=== PATIENT | female | born 1980 | race Caucasian/White ===

== ENCOUNTER → 2016-08-12 | Outpatient (CLI) | payer MEDICARE ==
[~2016-08-12] MED LIST: AUGMENTIN 875 M1 TAB PO; AUGMENTIN 875875 MG PO; CATAFLAM50 MG PO; CIPRODEX 0.3%-7.5 ML OT; HYDROCODONE BIT1 T11 PO; KEFLEX500 M1 PO; KETOROLAC10 MG PO; MOTRIN800 MG PO; Motrin,Rufen800 MG PO; NAPROSYN500 MG PO; PEN-VEE K500 MG PO; PENICILLIN; PHENERGAN W/DM120 ML PO; PREDNICOT10 MG PO; PROAIR HFA0.09 MG/AC INH; ZITHROMAX Z PA250 MG PO
== END | disposition home or self-care (01) ==
LOC: RAD 20:28
DX: J20.9 Acute bronchitis, unspecified (principal); R06.2 Wheezing; R09.89 Other specified symptoms and signs involving the circulatory and respiratory systems; R05 Cough

== ENCOUNTER → 2016-08-29 | Outpatient (CLI) | payer MEDICARE | END | disposition home or self-care (01) | LOC: RAD 15:38 | DX: M25.531 Pain in right wrist (principal) ==

== ENCOUNTER → 2016-11-26 | Outpatient (CLI) | payer MEDICARE | END | disposition home or self-care (01) | LOC: MRI 09:46 | DX: M67.431 Ganglion, right wrist (principal); M19.031 Primary osteoarthritis, right wrist; M65.841 Other synovitis and tenosynovitis, right hand ==

== ENCOUNTER 2017-02-23 21:14 | Emergency (ER) | payer MEDICARE ==
[~2017-02-23] VITALS: Ht 160 cm; Wt 97.5 kg
[2017-02-23 21:21] VITALS: BP 152/90
[2017-02-23 21:50] LABS: BASO # 0.1 10*3/uL (0.0-0.1); BASO % 0.7 % (0.0-1.0); EOS # 0.2 10*3/uL (0.0-0.4); EOS % 2.1 % (1.0-4.0); HEMATOCRIT 33.9 % (37.0-47.0); HEMOGLOBIN 11.5 g/dl (12.0-16.0); LYMPH # 2.7 10*3/uL (1.3-4.4); MEAN CELL VOLUME 88.3 fl (81.0-99.0); MEAN CORPUSCULAR HGB 29.9 pg (27.0-31.0); MEAN CORPUSCULAR HGB CONC 33.9 g/dl (33.0-37.0); MEAN PLATELET VOLUME 10.2 fl (9.6-12.3); MONO # 0.6 10*3/uL (0.1-1.0); MONO % 7.1 % (3.0-9.0); NEUT # 4.8 10*3/uL (2.3-7.9); PLATELET COUNT AUTOMATED 242 10*3/uL (130-400); RED BLOOD COUNT 3.84 10*6/uL (4.10-5.10); RED CELL DISTRI WIDTH 11.8 % (0-14.5); WHITE BLOOD COUNT 8.3 10*3/uL (4.8-10.8)
[2017-02-23 22:07] LABS: ALBUMIN 3.6 gm/dl (3.1-4.5); BILIRUBIN, TOTAL 0.5 mg/dl (0.2-1.0); POTASSIUM 3.8 mmol/L (3.5-5.1); TOTAL PROTEIN 7.1 gm/dL (6.4-8.2)
[2017-02-23 22:07] LABS: BILIRUBIN NEGATIVE (NEGATIVE); BLOOD 1+ (NEGATIVE); CLARITY CLOUDY (CLEAR); COLOR YELLOW (YELLOW); GLUCOSE NEGATIVE (NEGATIVE); KETONE NEGATIVE (NEGATIVE); LEUKO ESTERASE 2+ (NEGATIVE); NITRITE NEGATIVE (NEGATIVE); PROTEIN TRACE (NEGATIVE); SPECIFIC GRAVITY 1.025 (1.005-1.030)
[2017-02-23 22:13] LABS: WBC TNTC wbc/hpf (0-5)
[2017-02-23 22:14] LABS: BACTERIA 4+; MUCOUS TRACE; URINE REFLEX COMMENT YES (NO)
[2017-02-23] MEDS ORDERED: MACROBID100 M1 PO (22:16)
[2017-02-23] MEDS ORDERED: Motrin,Rufen800 MG PO (22:50)
== END 2017-02-23 22:56 | disposition home or self-care (01) ==
LOC: ED 21:14
PROVIDERS: Physician Assistant
DX: N30.01 Acute cystitis with hematuria (principal); F17.200 Nicotine dependence, unspecified, uncomplicated

== ENCOUNTER 2017-12-12 16:08 | Inpatient (IN) | payer MEDICARE ==
[~2017-12-12] VITALS: Ht 160 cm; Wt 113.0 kg
[~2017-12-12 16:08] MED LIST changes: +MACROBID100 M1 PO
[2017-12-12 16:12] VITALS: BP 154/93
[2017-12-12 16:34] LABS: BASO # 0.1 10*3/uL (0.0-0.1); BASO % 0.9 % (0.0-1.0); EOS # 0.2 10*3/uL (0.0-0.4); EOS % 2.5 % (1.0-4.0); HEMATOCRIT 36.9 % (37.0-47.0); HEMOGLOBIN 12.4 g/dl (12.0-16.0); LYMPH # 1.9 10*3/uL (1.3-4.4); LYMPH % 27.5 % (27.0-41.0); MEAN CELL VOLUME 88.5 fl (81.0-99.0); MEAN CORPUSCULAR HGB 29.7 pg (27.0-31.0); MEAN CORPUSCULAR HGB CONC 33.6 g/dl (33.0-37.0); MEAN PLATELET VOLUME 10.1 fl (9.6-12.3); MONO # 0.4 10*3/uL (0.1-1.0); MONO % 5.8 % (3.0-9.0); NEUT # 4.3 10*3/uL (2.3-7.9); PLATELET COUNT AUTOMATED 268 10*3/uL (130-400); RED BLOOD COUNT 4.17 10*6/uL (4.10-5.10); WHITE BLOOD COUNT 6.9 10*3/uL (4.8-10.8)
[2017-12-12 16:39] VITALS: BP 165/101
[2017-12-12 16:42] LABS: ACT PARTIAL THROMBO TIME 21.3 SECONDS (20.8-31.5); INTERNATIONAL NORM RATIO 0.9 (2.0-3.5)
[2017-12-12 16:50] LABS: ALBUMIN 3.7 gm/dl (3.1-4.5); ALKALINE PHOSPHATASE 134 U/L (45-117); BUN 8 mg/dl (7-24); CHLORIDE 106 mmol/L (98-107); CREATININE 1.03 mg/dL (0.55-1.02); POTASSIUM 3.7 mmol/L (3.5-5.1); SGOT/AST 18 IU/L (3-35); SGPT/ALT 20 U/L (12-78); SODIUM 141 mmol/L (136-145); TOTAL PROTEIN 7.5 gm/dL (6.4-8.2)
[2017-12-12 16:52] LABS: TROPONIN I < 0.015 ng/ml (<0.045)
[2017-12-12 16:56] VITALS: BP 152/87
[2017-12-12] MEDS ORDERED: LEXAPRO20 MG PO (16:58)
[2017-12-12 17:27] LABS: BILIRUBIN NEGATIVE (NEGATIVE); BLOOD TRACE-INTACT (NEGATIVE); CLARITY CLEAR (CLEAR); COLOR YELLOW (YELLOW); GLUCOSE NEGATIVE (NEGATIVE); KETONE NEGATIVE (NEGATIVE); LEUKO ESTERASE 3+ (NEGATIVE); NITRITE NEGATIVE (NEGATIVE); SPECIFIC GRAVITY <= 1.005 (1.005-1.030)
[2017-12-12 17:30] VITALS: BP 142/75
[2017-12-12 17:35] LABS: URINE AMPHETAMINES < 1000 (1000ng/ml); URINE BARBITURATES < 200 (200ng/ml); URINE BENZODIAZEPINES < 200 (200ng/ml); URINE CANNABINOIDS (THC) < 50 (50ng/ml); URINE COCAINE < 300 (300ng/ml); URINE METHADONE < 300 (300ng/ml); URINE OPIATES < 300 (300ng/ml); URINE PHENCYCLIDINE < 25 (25ng/ml)
[2017-12-12 17:37] LABS: EPITHELIAL CELLS 50-55
[2017-12-12 17:38] LABS: BACTERIA TRACE; WBC TNTC wbc/hpf (0-5)
[2017-12-12 17:45] VITALS: BP 142/75
[2017-12-12] MEDS ORDERED: LEXAPRO10 MG PO (18:04)
[2017-12-12 20:00] VITALS: BP 117/58
[2017-12-13] VITALS: BP 101/66
[2017-12-13 07:08] LABS: BASO # 0.1 10*3/uL (0.0-0.1); EOS # 0.2 10*3/uL (0.0-0.4); EOS % 2.4 % (1.0-4.0); HEMATOCRIT 36.2 % (37.0-47.0); HEMOGLOBIN 11.5 g/dl (12.0-16.0); LYMPH # 2.6 10*3/uL (1.3-4.4); LYMPH % 41.5 % (27.0-41.0); MEAN CELL VOLUME 92.8 fl (81.0-99.0); MEAN CORPUSCULAR HGB 29.5 pg (27.0-31.0); MEAN CORPUSCULAR HGB CONC 31.8 g/dl (33.0-37.0); MEAN PLATELET VOLUME 11.1 fl (9.6-12.3); MONO # 0.5 10*3/uL (0.1-1.0); MONO % 7.6 % (3.0-9.0); NEUT # 2.9 10*3/uL (2.3-7.9); NEUT % 47.3 % (47.0-73.0); PLATELET COUNT AUTOMATED 230 10*3/uL (130-400); RED CELL DISTRI WIDTH 12.1 % (0-14.5); WHITE BLOOD COUNT 6.2 10*3/uL (4.8-10.8)
[2017-12-13 07:10] LABS: ACT PARTIAL THROMBO TIME 22.3 SECONDS (20.8-31.5); ALBUMIN 3.2 gm/dl (3.1-4.5); ALKALINE PHOSPHATASE 115 U/L (45-117); BUN 10 mg/dl (7-24); CHLORIDE 106 mmol/L (98-107); CHOLESTEROL 117 mg/dL (<200); CREATININE 1.03 mg/dL (0.55-1.02); FREE T4 1.07 ng/dl (0.76-1.46); HDL CHOLESTEROL 36 mg/dl (40-60); INTERNATIONAL NORM RATIO 0.9 (2.0-3.5); LDL CHOLESTEROL 61 mg/dL (9-159); PHOSPHOROUS 4.2 mg/dL (2.5-4.9); POTASSIUM 3.7 mmol/L (3.5-5.1); SGOT/AST 12 IU/L (3-35); SGPT/ALT 16 U/L (12-78); SODIUM 142 mmol/L (136-145); TRIGLYCERIDES 100 mg/dl (<150); VLDL CHOLESTEROL 20 mg/dL (6-40)
[2017-12-13 07:15] LABS: TOTAL PROTEIN 6.3 gm/dL (6.4-8.2)
[2017-12-13 08:00] VITALS: BP 99/63
[2017-12-13 08:22] LABS: VITAMIN D, 25-HYDROXY 22.4 ng/mL (30-100)
[2017-12-13 12:00] VITALS: BP 102/64
[2017-12-13] MEDS ORDERED: CYCLOBENZAPRINE10 MG PO (14:14)
[2017-12-13] MEDS ORDERED: PREDNISONE50 MG PO (14:14)
== END 2017-12-13 14:38 | disposition home or self-care (01) | DRG 206 ==
LOC: ED 16:08 → EDHOLD 16:56 → 5E 17:34
PROVIDERS: Emergency Medicine; Family Medicine
DX: M94.0 Chondrocostal junction syndrome [Tietze] (principal); E66.01 Morbid (severe) obesity due to excess calories; F33.9 Major depressive disorder, recurrent, unspecified; N39.0 Urinary tract infection, site not specified; Z68.41 Body mass index [BMI] 40.0-44.9, adult; F17.210 Nicotine dependence, cigarettes, uncomplicated; E78.5 Hyperlipidemia, unspecified; E83.41 Hypermagnesemia; R73.9 Hyperglycemia, unspecified; F41.1 Generalized anxiety disorder; Z98.891 History of uterine scar from previous surgery; Z90.710 Acquired absence of both cervix and uterus; Z79.899 Other long term (current) drug therapy; Z90.49 Acquired absence of other specified parts of digestive tract; Z98.51 Tubal ligation status; Z82.49 Family history of ischemic heart disease and other diseases of the circulatory system; Z83.3 Family history of diabetes mellitus; Z83.79 Family history of other diseases of the digestive system; Z71.6 Tobacco abuse counseling

== ENCOUNTER 2018-02-13 22:00 | Emergency (ER) | payer MEDICARE ==
[~2018-02-13] VITALS: Ht 160 cm; Wt 90.7 kg
[~2018-02-13 22:00] MED LIST changes: +CYCLOBENZAPRINE10 MG PO; +LEXAPRO10 MG PO; +LEXAPRO20 MG PO; +PREDNISONE50 MG PO
[2018-02-13 22:03] VITALS: BP 124/79
== END 2018-02-14 ==
LOC: ED 22:00
DX: R07.81 Pleurodynia (principal); M25.511 Pain in right shoulder; Z53.21 Procedure and treatment not carried out due to patient leaving prior to being seen by health care provider

== ENCOUNTER 2018-05-17 20:59 | Emergency (ER) | payer MEDICARE ==
[~2018-05-17] VITALS: Ht 160 cm; Wt 87.1 kg
[2018-05-17 21:00] VITALS: BP 144/84
[2018-05-17] MEDS ORDERED: DELTASONE20 M1 PO (23:29)
[2018-05-17] MEDS ORDERED: DIFLUCAN150 MG PO (23:29)
[2018-05-17] MEDS ORDERED: ROBITUSSIN DM 105 ML PO (23:29)
== END 2018-05-18 01:10 | disposition home or self-care (01) ==
LOC: ED 20:59
DX: J40 Bronchitis, not specified as acute or chronic (principal); R19.7 Diarrhea, unspecified; R11.0 Nausea; R10.30 Lower abdominal pain, unspecified; F17.200 Nicotine dependence, unspecified, uncomplicated

== ENCOUNTER 2018-09-05 20:31 | Emergency (ER) | payer OTHER ==
[~2018-09-05] VITALS: Ht 160 cm; Wt 90.7 kg
[~2018-09-05 20:31] MED LIST changes: +DELTASONE20 M1 PO; +DIFLUCAN150 MG PO; +ROBITUSSIN DM 105 ML PO
[2018-09-05 20:34] VITALS: BP 156/95
[2018-09-05] MEDS ORDERED: AUGMENTIN 875875 MG PO (22:23)
[2018-12-28] MEDS ORDERED: CEFUROXIME AXE500 MG PO (17:58)
== END 2018-09-05 22:28 | disposition home or self-care (01) ==
LOC: ED 20:31
DX: H66.91 Otitis media, unspecified, right ear (principal); J06.9 Acute upper respiratory infection, unspecified; H60.91 Unspecified otitis externa, right ear; E66.01 Morbid (severe) obesity due to excess calories; F17.210 Nicotine dependence, cigarettes, uncomplicated

== ENCOUNTER → 2018-12-17 | Outpatient (CLI) | payer OTHER ==
[~2018-12-17] MED LIST changes: +CEFUROXIME AXE500 MG PO; +CYCLOBENZAPRINE5 M3 PO
== END ==
LOC: US 13:30
DX: N93.9 Abnormal uterine and vaginal bleeding, unspecified (principal); R10.2 Pelvic and perineal pain

== ENCOUNTER 2019-02-15 17:28 | Emergency (ER) | payer OTHER ==
[~2019-02-15] VITALS: Ht 160 cm; Wt 68.0 kg
--- NOTE | ~2019-02-15 | EKG ---
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
--- NOTE | ~2019-02-15 | EKG ---
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
[~2019-02-15 17:28] MED LIST changes: -CYCLOBENZAPRINE5 M3 PO
[2019-02-15 17:49] LABS: BASO # 0.1 10*3/uL (0.0-0.1); BASO % 1.2 % (0.0-1.0); EOS # 0.4 10*3/uL (0.0-0.4); EOS % 4.8 % (1.0-4.0); HEMATOCRIT 38.1 % (37.0-47.0); HEMOGLOBIN 13.1 g/dl (12.0-16.0); LYMPH # 2.2 10*3/uL (1.3-4.4); MEAN CELL VOLUME 92.5 fl (81.0-99.0); MEAN CORPUSCULAR HGB 31.8 pg (27.0-31.0); MEAN CORPUSCULAR HGB CONC 34.4 g/dl (33.0-37.0); MEAN PLATELET VOLUME 10.4 fl (9.6-12.3); MONO # 0.5 10*3/uL (0.1-1.0); MONO % 7.1 % (3.0-9.0); NEUT # 4.2 10*3/uL (2.3-7.9); NEUT % 56.8 % (47.0-73.0); PLATELET COUNT AUTOMATED 239 10*3/uL (130-400); RED BLOOD COUNT 4.12 10*6/uL (4.10-5.10); RED CELL DISTRI WIDTH 11.5 % (0-14.5); WHITE BLOOD COUNT 7.5 10*3/uL (4.8-10.8)
[2019-02-15 18:00] LABS: ACT PARTIAL THROMBO TIME 22.7 SECONDS (20.0-32.1); INTERNATIONAL NORM RATIO 0.9 (2.0-3.5)
[2019-02-15 18:03] LABS: ALBUMIN 3.8 gm/dl (3.1-4.5); ALKALINE PHOSPHATASE 129 U/L (45-117); BUN 12 mg/dl (7-24); CHLORIDE 105 mmol/L (98-107); POTASSIUM 4.2 mmol/L (3.5-5.1); SGOT/AST 11 IU/L (3-35); SGPT/ALT 18 U/L (12-78); SODIUM 140 mmol/L (136-145); TOTAL PROTEIN 7.3 gm/dL (6.4-8.2)
[2019-02-15 18:04] LABS: LIPASE 160 U/L (73-393)
[2019-02-15 18:10] LABS: TROPONIN I < 0.015 ng/ml (<0.045)
[2019-02-15 19:50] VITALS: BP 121/90
== END 2019-02-15 21:09 | disposition home or self-care (01) ==
LOC: ED 17:28
PROVIDERS: Emergency Medicine
DX: R07.89 Other chest pain (principal); R05 Cough; R51 Headache; R50.9 Fever, unspecified; E78.00 Pure hypercholesterolemia, unspecified; E66.01 Morbid (severe) obesity due to excess calories; F17.200 Nicotine dependence, unspecified, uncomplicated; Z88.6 Allergy status to analgesic agent; Z79.2 Long term (current) use of antibiotics; Z79.899 Other long term (current) drug therapy; Z90.710 Acquired absence of both cervix and uterus; Z90.49 Acquired absence of other specified parts of digestive tract

== ENCOUNTER 2019-03-24 00:59 | Emergency (ER) | payer OTHER ==
[~2019-03-24] VITALS: Ht 160 cm; Wt 83.9 kg
[2019-03-24 01:01] VITALS: BP 136/71
[2019-03-24] MEDS ORDERED: CYCLOBENZAPRINE5 M3 PO (02:53)
[2019-03-24] MEDS ORDERED: Motrin,Rufen800 MG PO (02:53)
== END 2019-03-24 03:06 | disposition home or self-care (01) ==
LOC: ED 00:59
DX: S20.212A Contusion of left front wall of thorax, initial encounter (principal); E66.01 Morbid (severe) obesity due to excess calories; F17.200 Nicotine dependence, unspecified, uncomplicated; Z88.6 Allergy status to analgesic agent; Z90.710 Acquired absence of both cervix and uterus; Z90.49 Acquired absence of other specified parts of digestive tract; W18.39XA Other fall on same level, initial encounter; Y93.01 Activity, walking, marching and hiking; Y92.830 Public park as the place of occurrence of the external cause; Y99.8 Other external cause status

== ENCOUNTER 2019-08-03 00:32 | Emergency (ER) | payer OTHER ==
[~2019-08-03] VITALS: Ht 160 cm; Wt 68.0 kg
[~2019-08-03 00:32] MED LIST changes: +CYCLOBENZAPRINE5 M3 PO
[2019-08-03 00:34] VITALS: BP 122/69
[2019-08-03 01:04] LABS: BILIRUBIN NEGATIVE (NEGATIVE); BLOOD 3+ (NEGATIVE); CLARITY TURBID (CLEAR); COLOR YELLOW (YELLOW); GLUCOSE NEGATIVE (NEGATIVE); KETONE NEGATIVE (NEGATIVE); LEUKO ESTERASE 2+ (NEGATIVE); NITRITE POSITIVE (NEGATIVE); SPECIFIC GRAVITY >= 1.030 (1.005-1.030); UROBILINOGEN 0.2 E.U./dl (0.2-1.0)
[2019-08-03 01:15] LABS: WBC TNTC wbc/hpf (0-5)
[2019-08-03] MEDS ORDERED: SEPTDS PO (02:06)
[2019-08-03] MEDS ORDERED: DIFLUCAN150 MG PO (02:27)
== END 2019-08-03 02:09 | disposition home or self-care (01) ==
LOC: ED 00:32
PROVIDERS: Emergency Medicine
DX: N39.0 Urinary tract infection, site not specified (principal); E66.01 Morbid (severe) obesity due to excess calories; F17.200 Nicotine dependence, unspecified, uncomplicated; Z88.6 Allergy status to analgesic agent; Z79.899 Other long term (current) drug therapy; Z90.710 Acquired absence of both cervix and uterus; Z90.49 Acquired absence of other specified parts of digestive tract

== ENCOUNTER 2019-10-24 15:38 | Emergency (ER) | payer OTHER ==
[~2019-10-24] VITALS: Ht 160 cm; Wt 68.0 kg
[~2019-10-24 15:38] MED LIST changes: +SEPTDS PO
[2019-10-24 15:47] VITALS: BP 135/92
[2019-10-24 16:34] LABS: BASO # 0.1 10*3/uL (0.0-0.1); BASO % 1.2 % (0.0-1.0); EOS # 0.2 10*3/uL (0.0-0.4); EOS % 3.2 % (1.0-4.0); HEMATOCRIT 38.7 % (37.0-47.0); HEMOGLOBIN 12.9 g/dl (12.0-16.0); LYMPH # 2.5 10*3/uL (1.3-4.4); LYMPH % 36.5 % (27.0-41.0); MEAN CELL VOLUME 91.1 fl (81.0-99.0); MEAN CORPUSCULAR HGB 30.4 pg (27.0-31.0); MEAN CORPUSCULAR HGB CONC 33.3 g/dl (33.0-37.0); MEAN PLATELET VOLUME 10.1 fl (9.6-12.3); MONO # 0.4 10*3/uL (0.1-1.0); MONO % 5.4 % (3.0-9.0); NEUT # 3.7 10*3/uL (2.3-7.9); NEUT % 53.6 % (47.0-73.0); PLATELET COUNT AUTOMATED 262 10*3/uL (130-400); RED BLOOD COUNT 4.25 10*6/uL (4.10-5.10); RED CELL DISTRI WIDTH 11.9 % (0-14.5); WHITE BLOOD COUNT 6.8 10*3/uL (4.8-10.8)
[2019-10-24 16:49] LABS: ALBUMIN 3.7 gm/dl (3.1-4.5); ALKALINE PHOSPHATASE 120 U/L (45-117); BUN 14 mg/dl (7-24); CHLORIDE 107 mmol/L (98-107); CREATININE 0.96 mg/dL (0.55-1.02); LIPASE 209 U/L (73-393); POTASSIUM 3.5 mmol/L (3.5-5.1); SGOT/AST 15 IU/L (3-35); SGPT/ALT 18 U/L (12-78); SODIUM 136 mmol/L (136-145); TOTAL PROTEIN 7.4 gm/dL (6.4-8.2)
[2019-10-24 16:54] LABS: BILIRUBIN NEGATIVE (NEGATIVE); BLOOD TRACE-INTACT (NEGATIVE); CLARITY CLEAR (CLEAR); COLOR YELLOW (YELLOW); GLUCOSE NEGATIVE (NEGATIVE); KETONE NEGATIVE (NEGATIVE); LEUKO ESTERASE NEGATIVE (NEGATIVE); NITRITE NEGATIVE (NEGATIVE); UROBILINOGEN 0.2 E.U./dl (0.2-1.0)
[2019-10-24 17:01] LABS: WBC 0-2 wbc/hpf (0-5)
[2019-10-24] MEDS ORDERED: ZOFRAN4 MG PO (19:34)
== END 2019-10-24 18:48 | disposition home or self-care (01) ==
LOC: ED 15:38
PROVIDERS: Nurse Practitioner Family
DX: R10.11 Right upper quadrant pain (principal); R10.12 Left upper quadrant pain; R11.0 Nausea; F32.9 Major depressive disorder, single episode, unspecified; Z88.8 Allergy status to other drugs, medicaments and biological substances

== ENCOUNTER 2020-01-31 08:29 | Emergency (ER) | payer OTHER ==
[~2020-01-31] VITALS: Wt 82.6 kg
[~2020-01-31 08:29] MED LIST changes: +ZOFRAN4 MG PO
[2020-01-31 08:49] LABS: BASO # 0.1 10*3/uL (0.0-0.1); EOS # 0.3 10*3/uL (0.0-0.4); EOS % 3.5 % (1.0-4.0); HEMATOCRIT 37.8 % (37.0-47.0); LYMPH # 1.7 10*3/uL (1.3-4.4); LYMPH % 23.6 % (27.0-41.0); MEAN CELL VOLUME 89.6 fl (81.0-99.0); MEAN CORPUSCULAR HGB 30.8 pg (27.0-31.0); MEAN CORPUSCULAR HGB CONC 34.4 g/dl (33.0-37.0); MEAN PLATELET VOLUME 10.2 fl (9.6-12.3); MONO # 0.4 10*3/uL (0.1-1.0); MONO % 4.8 % (3.0-9.0); NEUT # 4.9 10*3/uL (2.3-7.9); NEUT % 66.8 % (47.0-73.0); PLATELET COUNT AUTOMATED 233 10*3/uL (130-400); RED BLOOD COUNT 4.22 10*6/uL (4.10-5.10); RED CELL DISTRI WIDTH 11.6 % (0-14.5); WHITE BLOOD COUNT 7.3 10*3/uL (4.8-10.8)
[2020-01-31 09:01] VITALS: BP 134/69
[2020-01-31 09:01] LABS: ACT PARTIAL THROMBO TIME 23.6 SECONDS (20.0-32.1); INTERNATIONAL NORM RATIO 0.9 (2.0-3.5)
[2020-01-31 09:06] LABS: ALBUMIN 3.5 gm/dl (3.1-4.5); ALKALINE PHOSPHATASE 141 U/L (45-117); BUN 15 mg/dl (7-24); CHLORIDE 111 mmol/L (98-107); CREATININE 0.99 mg/dL (0.55-1.02); POTASSIUM 4.2 mmol/L (3.5-5.1); SGOT/AST 14 IU/L (3-35); SGPT/ALT 18 U/L (12-78); SODIUM 142 mmol/L (136-145); TOTAL PROTEIN 7.2 gm/dL (6.4-8.2)
[2020-01-31 09:20] LABS: TROPONIN I < 0.015 ng/ml (<0.045)
[2020-01-31] MEDS ORDERED: CYCLOBENZAPRINE10 MG PO (09:45)
[2020-01-31] MEDS ORDERED: TYLENOL325 M1 PO (09:45)
[2020-01-31] MEDS ORDERED: NAPROSYN500 MG PO (09:45)
== END 2020-01-31 09:49 | disposition home or self-care (01) ==
LOC: ED 08:29
PROVIDERS: Emergency Medicine
DX: M54.6 Pain in thoracic spine (principal); F32.9 Major depressive disorder, single episode, unspecified; Z90.710 Acquired absence of both cervix and uterus; Z88.8 Allergy status to other drugs, medicaments and biological substances; Z79.899 Other long term (current) drug therapy

== ENCOUNTER 2020-05-01 21:40 | Emergency (ER) | payer OTHER ==
[~2020-05-01] VITALS: Wt 68.0 kg
[~2020-05-01 21:40] MED LIST changes: +TYLENOL325 M1 PO
[2020-05-01 21:45] VITALS: BP 152/97
== END 2020-05-01 22:24 | disposition home or self-care (01) ==
LOC: ED 21:40
DX: H60.92 Unspecified otitis externa, left ear (principal); F32.9 Major depressive disorder, single episode, unspecified

== ENCOUNTER 2020-05-29 21:11 | Emergency (ER) | payer OTHER ==
[~2020-05-29] VITALS: Ht 160 cm; Wt 68.0 kg
[2020-05-29 21:35] VITALS: BP 133/86
[2020-05-29] MEDS ORDERED: CORTISPORIN SUS10 ML OT (22:04)
== END 2020-05-29 22:31 | disposition home or self-care (01) ==
LOC: ED 21:11
DX: H60.91 Unspecified otitis externa, right ear (principal); J30.9 Allergic rhinitis, unspecified; Z91.030 Bee allergy status; Z88.6 Allergy status to analgesic agent; Z72.0 Tobacco use

== ENCOUNTER 2021-01-26 21:25 | Emergency (ER) | payer MEDICARE ==
[~2021-01-26] VITALS: Ht 160 cm; Wt 68.0 kg
[~2021-01-26 21:25] MED LIST changes: +CORTISPORIN SUS10 ML OT
[2021-01-26 21:33] VITALS: BP 152/94
== END 2021-01-27 00:04 | disposition home or self-care (01) ==
LOC: ED 21:25
DX: R51.9 Headache, unspecified (principal); R11.2 Nausea with vomiting, unspecified; F17.200 Nicotine dependence, unspecified, uncomplicated; Z98.51 Tubal ligation status; Z90.49 Acquired absence of other specified parts of digestive tract; Z98.890 Other specified postprocedural states; Z91.030 Bee allergy status; Z88.5 Allergy status to narcotic agent; Z88.6 Allergy status to analgesic agent

== ENCOUNTER 2021-04-22 22:15 | Emergency (ER) | payer MEDICARE ==
[~2021-04-22] VITALS: Wt 68.0 kg
[2021-04-22 22:40] VITALS: BP 154/94
[2021-04-23] MEDS ORDERED: CEPHALEXIN500 M1 PO (02:15)
[2021-04-23] MEDS ORDERED: ALLERGY MEDICAT25 MG PO (02:15)
== END 2021-04-23 03:08 | disposition home or self-care (01) ==
LOC: ED 22:15
DX: S40.861A Insect bite (nonvenomous) of right upper arm, initial encounter (principal); L23.7 Allergic contact dermatitis due to plants, except food; R21 Rash and other nonspecific skin eruption; F17.200 Nicotine dependence, unspecified, uncomplicated; Z91.030 Bee allergy status; Z88.6 Allergy status to analgesic agent; Z98.890 Other specified postprocedural states; Z90.711 Acquired absence of uterus with remaining cervical stump; Z98.51 Tubal ligation status; Z90.49 Acquired absence of other specified parts of digestive tract; Z90.89 Acquired absence of other organs; W57.XXXA Bitten or stung by nonvenomous insect and other nonvenomous arthropods, initial encounter; Y93.89 Activity, other specified; Y92.89 Other specified places as the place of occurrence of the external cause; Y99.8 Other external cause status

== ENCOUNTER 2021-06-20 05:55 | Emergency (ER) | payer MEDICARE ==
[~2021-06-20 05:55] MED LIST changes: +ALLERGY MEDICAT25 MG PO; +CEPHALEXIN500 M1 PO
[2021-06-20 06:12] VITALS: BP 159/96
[2021-06-20 06:38] LABS: BASO # 0.1 10*3/uL (0.0-0.1); BASO % 1.2 % (0.0-1.0); EOS # 0.5 10*3/uL (0.0-0.4); EOS % 6.6 % (1.0-4.0); HEMATOCRIT 38.1 % (37.0-47.0); LYMPH # 2.4 10*3/uL (1.3-4.4); LYMPH % 31.1 % (27.0-41.0); MEAN CELL VOLUME 89.6 fl (81.0-99.0); MEAN CORPUSCULAR HGB 30.4 pg (27.0-31.0); MEAN CORPUSCULAR HGB CONC 33.9 g/dl (33.0-37.0); MEAN PLATELET VOLUME 9.8 fl (9.6-12.3); MONO # 0.5 10*3/uL (0.1-1.0); MONO % 6.8 % (3.0-9.0); NEUT # 4.2 10*3/uL (2.3-7.9); PLATELET COUNT AUTOMATED 255 10*3/uL (130-400); RED BLOOD COUNT 4.25 10*6/uL (4.10-5.10); RED CELL DISTRI WIDTH 11.5 % (0-14.5); WHITE BLOOD COUNT 7.7 10*3/uL (4.8-10.8)
[2021-06-20 06:52] LABS: ALBUMIN 3.4 gm/dl (3.1-4.5); ALKALINE PHOSPHATASE 142 U/L (45-117); BUN 8 mg/dl (7-24); CHLORIDE 109 mmol/L (98-107); CREATININE 0.92 mg/dL (0.55-1.02); LIPASE 233 U/L (73-393); POTASSIUM 4.2 mmol/L (3.5-5.1); SGOT/AST 15 IU/L (3-35); SGPT/ALT 23 U/L (12-78); SODIUM 142 mmol/L (136-145); TOTAL PROTEIN 7.2 gm/dL (6.4-8.2)
== END 2021-06-20 08:04 | disposition home or self-care (01) ==
LOC: ED 05:55
PROVIDERS: Internal Medicine
DX: R11.2 Nausea with vomiting, unspecified (principal); Z20.822 Contact with and (suspected) exposure to COVID-19; R10.9 Unspecified abdominal pain; R50.9 Fever, unspecified; R05.9 Cough, unspecified; Z91.030 Bee allergy status; Z88.6 Allergy status to analgesic agent

== ENCOUNTER 2021-07-04 01:47 | Emergency (ER) | payer MEDICARE ==
[2021-07-04 02:54] VITALS: BP 146/90
== END 2021-07-04 03:40 | disposition left against medical advice (07) ==
LOC: ED 01:47
DX: Z53.21 Procedure and treatment not carried out due to patient leaving prior to being seen by health care provider (principal)

== ENCOUNTER 2021-08-24 03:53 | Emergency (ER) | payer MEDICARE ==
[2021-08-24 04:08] VITALS: BP 166/108
[2021-08-24] MEDS ORDERED: LEVOFLOXACIN500 MG PO (04:44)
[2021-08-24] MEDS ORDERED: CORTISPORIN SUS10 ML OT (04:44)
== END 2021-08-24 05:40 | disposition home or self-care (01) ==
LOC: ED 03:53
DX: J40 Bronchitis, not specified as acute or chronic (principal); H66.92 Otitis media, unspecified, left ear; H60.92 Unspecified otitis externa, left ear; Z91.030 Bee allergy status; Z88.6 Allergy status to analgesic agent; Z98.51 Tubal ligation status; Z90.49 Acquired absence of other specified parts of digestive tract; Z90.89 Acquired absence of other organs; Z98.890 Other specified postprocedural states; Z87.891 Personal history of nicotine dependence

== ENCOUNTER 2021-09-01 16:33 | Emergency (ER) | payer MEDICARE ==
[~2021-09-01] VITALS: Ht 160 cm
[~2021-09-01 16:33] MED LIST changes: +LEVOFLOXACIN500 MG PO
[2021-09-01 16:48] VITALS: BP 112/70
[2021-09-01 17:51] LABS: HEMATOCRIT 36.9 % (37.0-47.0); LYMPH # 0.5 10*3/uL (1.3-4.4); LYMPH % 11.3 % (27.0-41.0); MEAN CELL VOLUME 87.9 fl (81.0-99.0); MEAN CORPUSCULAR HGB 30.7 pg (27.0-31.0); MEAN PLATELET VOLUME 9.6 fl (9.6-12.3); MONO # 0.2 10*3/uL (0.1-1.0); MONO % 3.8 % (3.0-9.0); NEUT # 3.5 10*3/uL (2.3-7.9); NEUT % 83.4 % (47.0-73.0); PLATELET COUNT AUTOMATED 149 10*3/uL (130-400); RED CELL DISTRI WIDTH 11.1 % (0-14.5); WHITE BLOOD COUNT 4.2 10*3/uL (4.8-10.8)
[2021-09-01 18:04] LABS: ALBUMIN 3.1 gm/dl (3.1-4.5); CREATININE 1.26 mg/dL (0.55-1.02); POTASSIUM 3.6 mmol/L (3.5-5.1); TOTAL PROTEIN 6.7 gm/dL (6.4-8.2)
[2021-09-01] MEDS ORDERED: OFLOXACIN OTIC5 ML OPH (19:10)
[2021-09-01] MEDS ORDERED: ZOFRAN4 MG PO (19:10)
== END 2021-09-01 20:46 | disposition home or self-care (01) ==
LOC: ED 16:33
PROVIDERS: Nurse Practitioner Family
DX: B34.9 Viral infection, unspecified (principal); Z20.822 Contact with and (suspected) exposure to COVID-19; H60.502 Unspecified acute noninfective otitis externa, left ear; F17.200 Nicotine dependence, unspecified, uncomplicated; Z91.030 Bee allergy status; Z88.8 Allergy status to other drugs, medicaments and biological substances; Z98.890 Other specified postprocedural states; Z90.710 Acquired absence of both cervix and uterus; Z98.51 Tubal ligation status; Z90.89 Acquired absence of other organs

== ENCOUNTER 2021-12-12 14:21 | Emergency (ER) | payer MEDICARE ==
[~2021-12-12] VITALS: Wt 96.2 kg
[~2021-12-12 14:21] MED LIST changes: +OFLOXACIN OTIC5 ML OPH
[2021-12-12 14:40] VITALS: BP 153/91
[2021-12-12] MEDS ORDERED: CLINDAMYCIN HC300 MG PO (14:52)
[2021-12-12] MEDS ORDERED: IBU800 M2 PO (14:52)
== END 2021-12-12 15:08 | disposition home or self-care (01) ==
LOC: ED 14:21
DX: K08.89 Other specified disorders of teeth and supporting structures (principal); Z91.030 Bee allergy status; Z88.8 Allergy status to other drugs, medicaments and biological substances; Z90.710 Acquired absence of both cervix and uterus; Z98.51 Tubal ligation status; Z90.89 Acquired absence of other organs; Z98.890 Other specified postprocedural states

== ENCOUNTER 2022-04-11 19:20 | Emergency (ER) | payer MEDICARE ==
[~2022-04-11] VITALS: Ht 160 cm; Wt 68.0 kg
[~2022-04-11 19:20] MED LIST changes: +CLINDAMYCIN HC300 MG PO; +IBU800 M2 PO
[2022-04-11 19:23] VITALS: BP 157/96
== END 2022-04-11 21:04 | disposition home or self-care (01) ==
LOC: ED 19:20
DX: J06.9 Acute upper respiratory infection, unspecified (principal); Z20.822 Contact with and (suspected) exposure to COVID-19; Z91.030 Bee allergy status; Z88.8 Allergy status to other drugs, medicaments and biological substances; Z98.890 Other specified postprocedural states; Z90.710 Acquired absence of both cervix and uterus; Z90.89 Acquired absence of other organs; Z98.51 Tubal ligation status

== ENCOUNTER 2022-08-25 14:57 | Emergency (ER) | payer MEDICARE ==
[~2022-08-25] VITALS: Ht 160 cm; Wt 90.7 kg
[2022-08-25 15:28] VITALS: BP 140/84
[2022-08-25 17:18] LABS: BILIRUBIN Negative (Negative); BLOOD Trace-Lysed (Negative); CLARITY Cloudy (Clear); COLOR Yellow (Yellow); GLUCOSE Negative (Negative); KETONE Negative (Negative); LEUKO ESTERASE 3+ (Negative); NITRITE Negative (Negative); PH 6.5 (4.5-8.0)
[2022-08-25 17:30] LABS: BACTERIA 3+; WBC TNTC wbc/hpf (0-5)
[2022-08-25 17:31] LABS: CALCIUM OXALATE CRYSTALS Trace
[2022-08-25] MEDS ORDERED: DIFLUCAN150 MG PO (17:40)
[2022-08-25] MEDS ORDERED: SEPTDS PO (17:40)
== END 2022-08-25 17:45 | disposition home or self-care (01) ==
LOC: ED 14:57
PROVIDERS: Physician Assistant
DX: N39.0 Urinary tract infection, site not specified (principal); Z88.5 Allergy status to narcotic agent; Z91.030 Bee allergy status; Z90.710 Acquired absence of both cervix and uterus; Z98.51 Tubal ligation status; Z90.49 Acquired absence of other specified parts of digestive tract; Z90.89 Acquired absence of other organs; Z98.890 Other specified postprocedural states; Z72.0 Tobacco use

== ENCOUNTER 2023-03-07 00:03 | Emergency (ER) | payer OTHER ==
[~2023-03-07] VITALS: Ht 160 cm; Wt 77.1 kg
[2023-03-07 00:10] VITALS: BP 150/87
[2023-03-07] MEDS ORDERED: PREDNISONE20 M1 PO (01:26)
[2023-03-07] MEDS ORDERED: ZITHROMAX250 MG PO (01:26)
== END 2023-03-07 01:44 | disposition home or self-care (01) ==
LOC: ED 00:03
DX: J20.8 Acute bronchitis due to other specified organisms (principal); Z20.822 Contact with and (suspected) exposure to COVID-19; F17.210 Nicotine dependence, cigarettes, uncomplicated; Z91.048 Other nonmedicinal substance allergy status; Z88.6 Allergy status to analgesic agent; Z98.890 Other specified postprocedural states; Z90.711 Acquired absence of uterus with remaining cervical stump; Z98.51 Tubal ligation status; Z90.49 Acquired absence of other specified parts of digestive tract; Z90.89 Acquired absence of other organs

== ENCOUNTER 2023-03-18 17:24 | Emergency (ER) | payer OTHER ==
[~2023-03-18] VITALS: Wt 77.1 kg
[~2023-03-18 17:24] MED LIST changes: +PREDNISONE20 M1 PO; +ZITHROMAX250 MG PO
[2023-03-18] MEDS ORDERED: PENICILLIN VK500 MG PO (18:12)
[2023-03-18] MEDS ORDERED: DIFLUCAN150 MG PO (18:12)
[2023-03-18] MEDS ORDERED: IBU800 M1 PO (18:12)
[2023-03-18 18:24] VITALS: BP 157/88
== END 2023-03-18 18:26 | disposition home or self-care (01) ==
LOC: ED 17:24
DX: K08.89 Other specified disorders of teeth and supporting structures (principal); F32.A Depression, unspecified; Z91.030 Bee allergy status; Z88.5 Allergy status to narcotic agent; Z98.51 Tubal ligation status; Z90.710 Acquired absence of both cervix and uterus; Z90.49 Acquired absence of other specified parts of digestive tract; Z90.89 Acquired absence of other organs; Z98.890 Other specified postprocedural states; Z72.0 Tobacco use

== ENCOUNTER 2023-10-29 15:32 | Emergency (ER) | payer SELFPAY ==
[~2023-10-29] VITALS: Ht 160 cm; Wt 59.0 kg
[~2023-10-29 15:32] MED LIST changes: +IBU800 M1 PO; +PENICILLIN VK500 MG PO
[2023-10-29 15:43] VITALS: BP 136/84
[2023-10-29] MEDS ORDERED: Motrin,Rufen800 MG PO (17:08)
== END 2023-10-29 17:49 | disposition home or self-care (01) ==
LOC: ED 15:32
DX: S93.401A Sprain of unspecified ligament of right ankle, initial encounter (principal); F32.A Depression, unspecified; Z91.030 Bee allergy status; Z88.8 Allergy status to other drugs, medicaments and biological substances; Z90.49 Acquired absence of other specified parts of digestive tract; Z90.89 Acquired absence of other organs; Z98.51 Tubal ligation status; Z98.890 Other specified postprocedural states; Z90.710 Acquired absence of both cervix and uterus; Z72.0 Tobacco use; W01.0XXA Fall on same level from slipping, tripping and stumbling without subsequent striking against object, initial encounter; Y93.01 Activity, walking, marching and hiking; Y92.89 Other specified places as the place of occurrence of the external cause; Y99.8 Other external cause status

== ENCOUNTER 2024-05-27 09:03 | Emergency (ER) | payer OTHER ==
[~2024-05-27] VITALS: Ht 160 cm; Wt 90.7 kg
[2024-05-27 09:16] VITALS: BP 154/94
[2024-05-27] MEDS ORDERED: Ketorolac Tromethamine 30 MG/ML VIAL IV ONE (09:30)
[2024-05-27 09:47] LABS: BASO # 0.1 10*3/uL (0.0-0.1); BASO % 1.4 % (0.0-1.0); EOS # 0.2 10*3/uL (0.0-0.4); EOS % 3.2 % (1.0-4.0); HEMATOCRIT 39.3 % (37.0-47.0); LYMPH # 1.9 10*3/uL (1.3-4.4); LYMPH % 32.9 % (27.0-41.0); MEAN CELL VOLUME 91.2 fl (81.0-99.0); MEAN CORPUSCULAR HGB 30.4 pg (27.0-31.0); MEAN CORPUSCULAR HGB CONC 33.3 g/dl (33.0-37.0); MEAN PLATELET VOLUME 9.6 fl (9.6-12.3); MONO # 0.4 10*3/uL (0.1-1.0); MONO % 6.1 % (3.0-9.0); NEUT # 3.3 10*3/uL (2.3-7.9); NEUT % 56.2 % (47.0-73.0); PLATELET COUNT AUTOMATED 233 10*3/uL (130-400); RED BLOOD COUNT 4.31 10*6/uL (4.10-5.10); RED CELL DISTRI WIDTH 11.2 % (0-14.5); WHITE BLOOD COUNT 5.9 10*3/uL (4.8-10.8)
[2024-05-27 10:08] LABS: BILIRUBIN Negative (Negative); BLOOD Negative (Negative); CLARITY Clear (Clear); COLOR Yellow (Yellow); GLUCOSE Negative (Negative); KETONE Negative (Negative); LEUKO ESTERASE 1+ (Negative); NITRITE Negative (Negative); PH 6.5 (4.5-8.0); SPECIFIC GRAVITY 1.015 (1.001-1.030)
[2024-05-27 10:11] LABS: ALKALINE PHOSPHATASE 122 U/L (46-116); BUN 16 mg/dl (9-23); CHLORIDE 105 mmol/L (98-107); POTASSIUM 3.6 mmol/L (3.4-5.1); SGPT/ALT 10 U/L (5-49); TOTAL PROTEIN 7.3 gm/dL (6.0-8.0)
[2024-05-27 10:17] LABS: BACTERIA 1+
[2024-05-27] MEDS ORDERED: IBU600 M1 PO (13:14)
[2024-05-27] MEDS ORDERED: Na Phos, Dibasic/Na Phos, Mo 1 EA BOT R PRN (13:25)
== END 2024-05-27 13:24 | disposition home or self-care (01) ==
LOC: ED 09:03
PROVIDERS: Emergency Medicine
DX: K52.9 Noninfective gastroenteritis and colitis, unspecified (principal); F17.200 Nicotine dependence, unspecified, uncomplicated; Z90.711 Acquired absence of uterus with remaining cervical stump; Z91.030 Bee allergy status; Z88.6 Allergy status to analgesic agent; Z98.890 Other specified postprocedural states; Z98.51 Tubal ligation status; Z90.49 Acquired absence of other specified parts of digestive tract; Z90.89 Acquired absence of other organs

== ENCOUNTER 2024-10-06 20:21 | Emergency (ER) | payer OTHER ==
[~2024-10-06] VITALS: Ht 160 cm; Wt 86.2 kg
[~2024-10-06 20:21] MED LIST changes: +IBU600 M1 PO
[2024-10-06 20:33] VITALS: BP 164/84
[2024-10-06] MEDS ORDERED: IBUPROFEN 800 MG TAB PO ONE (21:50)
[2024-10-06] MEDS ORDERED: IBU800 M2 PO (23:15)
[2024-10-06] MEDS ORDERED: IBUPROFEN 800 MG 4 TAB ED PACK PO ONE (23:20)
== END 2024-10-07 | disposition home or self-care (01) ==
LOC: ED 20:21
DX: S82.841A Displaced bimalleolar fracture of right lower leg, initial encounter for closed fracture (principal); E83.41 Hypermagnesemia; F32.A Depression, unspecified; Z91.030 Bee allergy status; Z88.5 Allergy status to narcotic agent; Z72.0 Tobacco use; Z90.710 Acquired absence of both cervix and uterus; Z90.49 Acquired absence of other specified parts of digestive tract; Z90.89 Acquired absence of other organs; Z98.51 Tubal ligation status; Z98.890 Other specified postprocedural states; X50.1XXA Overexertion from prolonged static or awkward postures, initial encounter; Y93.01 Activity, walking, marching and hiking; Y92.89 Other specified places as the place of occurrence of the external cause; Y99.8 Other external cause status

== ENCOUNTER → 2024-10-14 | Day surgery (SDC) | payer OTHER ==
[2024-10-12 09:49] LABS: BUN 22 mg/dl (9-23); CHLORIDE 106 mmol/L (98-107); POTASSIUM 3.8 mmol/L (3.4-5.1)
[~2024-10-14] VITALS: Ht 160 cm; Wt 68.0 kg
[~2024-10-14] MED LIST changes: +ACETAMINOPHEN 100 ML IV ONE; +Bupivacaine Hydrochloride/Ep2 30 ML VIAL ONE; +Dexamethasone Sodium Phospha 4 MG/ML VIAL IV ONE; +HYDROmorphONE Hydrochloride 0.5 MG/0.5 ML SYRINGE IV PRN; +Lactated Ringer's Solution 1,000 ML IV ONE; +Lactated Ringer's Solution 1,000 ML IV SCH; +Lidocaine Hydrochloride 5 ML VIAL IV ONE; +Midazolam Hydrochloride 2 MG/2 ML VIAL IV ONE; +Ondansetron Hydrochloride 4 MG/2 ML VIAL IV ONE; +PERCOCET 5-3251 EACH PO; +PROPOFOL 200 MG/20 ML VIAL IV ONE; +Phenylephrine Hydrochloride 1 MG/10 ML SYRINGE IV ONE; +Ropivacaine Hydrochloride 5 MG/ML 20 ML AMP IJ ONE; +SEVOFLURANE 250 ML BOT INH ONE; +ceFAZolin sodium/sodium chlor 20 ML IV ONE; +ePHEDrine Sulfate 25 MG/5 ML SYRINGE IV ONE; +fentaNYL CITRATE 100 MCG/2 ML VIAL IV ONE
[2024-10-14 08:52] VITALS: BP 153/95
[2024-10-14 12:00] VITALS: BP 96/39
[2024-10-14 12:15] VITALS: BP 101/50
[2024-10-14 12:30] VITALS: BP 108/58
[2024-10-14 12:45] VITALS: BP 118/65
[2024-10-14 12:58] VITALS: BP 121/67
== END | disposition home or self-care (01) ==
LOC: SDC 10-12 09:30
PROVIDERS: ATTEND Orthopaedic Surgery
DX: S82.841A Displaced bimalleolar fracture of right lower leg, initial encounter for closed fracture (principal); Z98.891 History of uterine scar from previous surgery; Z90.89 Acquired absence of other organs; Z90.49 Acquired absence of other specified parts of digestive tract; Z87.891 Personal history of nicotine dependence; Z90.710 Acquired absence of both cervix and uterus; Z98.890 Other specified postprocedural states; Z79.899 Other long term (current) drug therapy; Z91.030 Bee allergy status; Z88.8 Allergy status to other drugs, medicaments and biological substances; Z82.49 Family history of ischemic heart disease and other diseases of the circulatory system; X58.XXXA Exposure to other specified factors, initial encounter; Y93.89 Activity, other specified; Y92.89 Other specified places as the place of occurrence of the external cause; Y99.8 Other external cause status

== ENCOUNTER 2024-10-19 13:24 | Emergency (ER) | payer OTHER ==
[~2024-10-19] VITALS: Ht 160 cm; Wt 68.0 kg
[~2024-10-19 13:24] MED LIST changes: -ACETAMINOPHEN 100 ML IV ONE; -Bupivacaine Hydrochloride/Ep2 30 ML VIAL ONE; -Dexamethasone Sodium Phospha 4 MG/ML VIAL IV ONE; -HYDROmorphONE Hydrochloride 0.5 MG/0.5 ML SYRINGE IV PRN; -Lactated Ringer's Solution 1,000 ML IV ONE; -Lactated Ringer's Solution 1,000 ML IV SCH; -Lidocaine Hydrochloride 5 ML VIAL IV ONE; -Midazolam Hydrochloride 2 MG/2 ML VIAL IV ONE; -Ondansetron Hydrochloride 4 MG/2 ML VIAL IV ONE; -PROPOFOL 200 MG/20 ML VIAL IV ONE; -Phenylephrine Hydrochloride 1 MG/10 ML SYRINGE IV ONE; -Ropivacaine Hydrochloride 5 MG/ML 20 ML AMP IJ ONE; -SEVOFLURANE 250 ML BOT INH ONE; -ceFAZolin sodium/sodium chlor 20 ML IV ONE; -ePHEDrine Sulfate 25 MG/5 ML SYRINGE IV ONE; -fentaNYL CITRATE 100 MCG/2 ML VIAL IV ONE
[2024-10-19 13:56] VITALS: BP 142/89
== END 2024-10-19 16:37 | disposition home or self-care (01) ==
LOC: ED 13:24
DX: Z47.89 Encounter for other orthopedic aftercare (principal); F32.A Depression, unspecified; Z79.899 Other long term (current) drug therapy; Z88.5 Allergy status to narcotic agent; Z91.030 Bee allergy status; Z90.49 Acquired absence of other specified parts of digestive tract; Z90.710 Acquired absence of both cervix and uterus; Z98.51 Tubal ligation status; Z90.89 Acquired absence of other organs; Z98.890 Other specified postprocedural states

== ENCOUNTER → 2024-10-22 | Outpatient (CLI) | payer OTHER | END | disposition home or self-care (01) | LOC: ORTHO 13:07 | PROVIDERS: ATTEND Orthopaedic Surgery | DX: S82.841D Displaced bimalleolar fracture of right lower leg, subsequent encounter for closed fracture with routine healing (principal); X58.XXXD Exposure to other specified factors, subsequent encounter ==

== ENCOUNTER 2024-11-03 21:08 | Emergency (ER) | payer OTHER ==
[~2024-11-03] VITALS: Ht 160 cm; Wt 68.0 kg
[2024-11-03 21:08] VITALS: BP 132/78
[2024-11-03] MEDS ORDERED: Acetaminophen/Oxycodone 5 MG/325 MG TABLET PO ONE (21:45)
== END 2024-11-03 23:59 | disposition home or self-care (01) ==
LOC: ED 21:08
DX: S82.841A Displaced bimalleolar fracture of right lower leg, initial encounter for closed fracture (principal); F32.A Depression, unspecified; Z79.899 Other long term (current) drug therapy; Z88.5 Allergy status to narcotic agent; Z91.030 Bee allergy status; Z90.49 Acquired absence of other specified parts of digestive tract; Z90.710 Acquired absence of both cervix and uterus; Z90.89 Acquired absence of other organs; Z98.51 Tubal ligation status; X58.XXXA Exposure to other specified factors, initial encounter; Y93.89 Activity, other specified; Y92.89 Other specified places as the place of occurrence of the external cause; Y99.8 Other external cause status

== ENCOUNTER 2024-11-15 00:20 | Emergency (ER) | payer OTHER ==
[~2024-11-15] VITALS: Ht 160 cm; Wt 81.6 kg
[2024-11-15 00:43] VITALS: BP 147/72
[2024-11-15] MEDS ORDERED: Acetaminophen/Oxycodone 5 MG/325 MG TABLET PO ONE (00:55)
[2024-11-15] MEDS ORDERED: Ondansetron Hydrochloride 4 MG TAB SL ONE (00:55)
== END 2024-11-15 03:42 | disposition home or self-care (01) ==
LOC: ED 00:20
DX: M79.604 Pain in right leg (principal); Z91.030 Bee allergy status; Z88.6 Allergy status to analgesic agent; Z98.890 Other specified postprocedural states; Z90.49 Acquired absence of other specified parts of digestive tract; Z90.89 Acquired absence of other organs; W01.0XXA Fall on same level from slipping, tripping and stumbling without subsequent striking against object, initial encounter; Y93.89 Activity, other specified; Y92.89 Other specified places as the place of occurrence of the external cause; Y99.8 Other external cause status

== ENCOUNTER → 2024-11-26 | Outpatient (CLI) | payer OTHER | END | disposition home or self-care (01) | LOC: ORTHO 00:56 | PROVIDERS: ATTEND Orthopaedic Surgery | DX: S82.841D Displaced bimalleolar fracture of right lower leg, subsequent encounter for closed fracture with routine healing (principal); M19.071 Primary osteoarthritis, right ankle and foot; X58.XXXD Exposure to other specified factors, subsequent encounter ==

== ENCOUNTER → 2025-01-14 | Outpatient (CLI) | payer OTHER | END | disposition home or self-care (01) | LOC: ORTHO 01:57 | PROVIDERS: ATTEND Orthopaedic Surgery | DX: S82.841D Displaced bimalleolar fracture of right lower leg, subsequent encounter for closed fracture with routine healing (principal); M19.071 Primary osteoarthritis, right ankle and foot; M77.31 Calcaneal spur, right foot; M76.61 Achilles tendinitis, right leg; M77.8 Other enthesopathies, not elsewhere classified; M79.89 Other specified soft tissue disorders; X58.XXXD Exposure to other specified factors, subsequent encounter ==

== ENCOUNTER 2025-06-05 16:35 | Emergency (ER) | payer MEDICARE ==
[~2025-06-05] VITALS: Ht 160 cm; Wt 90.7 kg
[2025-06-05 17:08] VITALS: BP 165/92
[2025-06-05 18:22] LABS: BILIRUBIN Negative (Negative); BLOOD Negative (Negative); CLARITY Cloudy (Clear); COLOR Yellow (Yellow); KETONE Negative (Negative); LEUKO ESTERASE 2+ (Negative); NITRITE Negative (Negative); PH 8.0 (4.5-8.0); SPECIFIC GRAVITY 1.015 (1.001-1.030); UROBILINOGEN 2.0 E.U./dl (0.0-1.0)
[2025-06-05 18:36] LABS: BACTERIA 2+; WBC TNTC wbc/hpf (0-5)
[2025-06-05] MEDS ORDERED: MACROBID100 M1 PO (20:01)
[2025-06-05] MEDS ORDERED: Nitrofurantoin Monohydrate/N 100 MG CAP PO ONE (20:05)
[2025-06-05] MEDS ORDERED: FLUCONAZOLE 150 MG TAB PO ONE (20:05)
== END 2025-06-05 20:03 | disposition home or self-care (01) ==
LOC: ED 16:35
DX: N39.0 Urinary tract infection, site not specified (principal); E66.01 Morbid (severe) obesity due to excess calories; F32.A Depression, unspecified; F17.210 Nicotine dependence, cigarettes, uncomplicated; Z98.890 Other specified postprocedural states; Z87.440 Personal history of urinary (tract) infections; Z90.49 Acquired absence of other specified parts of digestive tract; Z90.710 Acquired absence of both cervix and uterus; Z98.51 Tubal ligation status; Z88.5 Allergy status to narcotic agent; Z91.030 Bee allergy status